=== PATIENT | female | born 1965 | race American Indian/Alaskan Native ===

== ENCOUNTER 2016-07-22 16:32 | Emergency (ER) | payer MEDICARE ==
--- NOTE | 2016-07-23 12:16 | ED Elopement Review ---
ED Pt Elopement review - Call Back decision Pt Call Back Decision: No action required
== END 2016-07-22 20:15 | disposition left against medical advice (07) ==
LOC: ED 16:32
DX: M62.838 Other muscle spasm (principal); Z53.21 Procedure and treatment not carried out due to patient leaving prior to being seen by health care provider

== ENCOUNTER 2016-09-03 17:27 | Emergency (ER) | payer MEDICARE | END 2016-09-03 17:40 | disposition left against medical advice (07) | LOC: ED 17:27 | DX: R03.0 Elevated blood-pressure reading, without diagnosis of hypertension (principal); Z53.21 Procedure and treatment not carried out due to patient leaving prior to being seen by health care provider ==

== ENCOUNTER 2017-08-03 12:02 | Emergency (ER) | payer MEDICARE ==
[2017-08-03 12:28] VITALS: BP 197/110
[2017-08-03] MEDS ORDERED: APRESOLINE PO ONE (12:35)
--- NOTE | 2017-08-03 12:58 | XRay Report ---
ROUTINE CHEST, TWO VIEWS: HISTORY: Shortness of breath. Compared to 04/19/16. Heart size appears borderline to mildly increased on today's exam. There is mild right perihilar infiltration. It is unclear if this represents pneumonia or unilateral pulmonary edema. The left lung is generally clear. No pleural effusion or pneumothorax. IMPRESSION: Borderline to mild cardiomegaly which appears new. Right perihilar infiltration which could represent pneumonia or unilateral pulmonary edema. Please correlate with the patient's clinical presentation.
[2017-08-03 14:13] LABS: Basophils % (Auto) 0.3 % (0.0-1.8); Eosinophils # (Auto) 0.1 K/mm3 (0.0-0.4); Eosinophils % (Auto) 0.9 % (0.0-4.3); Hematocrit 43.2 % (30.3-42.9); Hemoglobin 14.4 gm/dl (10.1-14.3); Lymphocytes % (Auto) 10.4 % (13.4-35.0); Mean Corpuscular HGB Conc 33 % (30-34); Mean Corpuscular Hemoglobin 30 pg (28-32); Mean Corpuscular Volume 90 fl (79-97); Monocytes # (Auto) 0.8 K/mm3 (0.0-0.8); Platelet Count 213 K/mm3 (140-440); Red Blood Count 4.82 M/mm3 (3.65-5.03); Red Cell Distribution Width 14.3 % (13.2-15.2)
[2017-08-03 14:36] LABS: BUN/Creatinine Ratio 12; Blood Urea Nitrogen 14 mg/dL (7-17); Calcium 8.9 mg/dL (8.4-10.2); Hemolysis Index 3
== END 2017-08-03 23:00 | disposition left against medical advice (07) ==
LOC: ED 12:02
DX: R06.02 Shortness of breath (principal); I10 Essential (primary) hypertension; Z53.21 Procedure and treatment not carried out due to patient leaving prior to being seen by health care provider
CPT/HCPCS: 36415; 71046; 80048; 83880; 84484; 85025; 93005; 93010

== ENCOUNTER 2017-12-21 16:06 | Emergency (ER) | payer MEDICARE ==
[2017-12-21] MEDS ORDERED: CATAPRES PO ONE (17:24)
--- NOTE | 2017-12-21 17:25 | Emergency Department Report ---
Blank Doc - Documentation Documentation: Patient is a 52-year-old [place] female from out of her blood pressure medicines. Patient saw her primary care physician today but her blood pressure was over 220 and was sent to the emergency department. Patient denies any chest pain or shortness of breath at this time. Patient also denies any focal neurological deficits. The patient will be sent to the fast-track area. Patient was given 0.2 Catapres and reassess her blood pressure.
[2017-12-21 19:49] VITALS: BP 192/103
== END 2017-12-21 20:09 | disposition left against medical advice (07) ==
LOC: ED 16:06
DX: I10 Essential (primary) hypertension (principal); Z53.21 Procedure and treatment not carried out due to patient leaving prior to being seen by health care provider
CPT/HCPCS: 99282

== ENCOUNTER 2018-02-19 13:20 | Emergency (ER) | payer MEDICARE ==
[2018-02-19] MEDS ORDERED: CATAPRES PO ONE (14:32)
--- NOTE | 2018-02-19 14:36 | Emergency Department Report ---
ED General Adult HPI - General Chief complaint: Medical Clearance Stated complaint: BLOOD PRESSURE HIGH Time Seen by Provider: 02/19/18 14:24 Source: patient Mode of arrival: Ambulatory Limitations: No Limitations - History of Present Illness Initial comments: Patient is 53 years old female history of hypertension. Noncompliant with her medication. Patient stated that she doesn't remember the last time she took any blood pressure medicine. Patient requesting refill for her medication. Her blood pressure in the ER is 220/116. Patient denied any headache, chest pain, shortness of breath, weakness numbness or tingling sensation. - Related Data Home Medications Medication Instructions Recorded Confirmed Last Taken Sertraline [Zoloft] 50 mg PO QDAY 12/04/14 08/14/15 12/03/14 Losartan/Hydrochlorothiazide 1 each PO QDAY 08/14/15 08/14/15 Unknown [Hyzaar 100-12.5 TAB] Previous Rx's Medication Instructions Recorded Last Taken Type Linaclotide [Linzess] 1 tab PO DAILY #30 capsule 12/04/14 Unknown Rx hydrALAZINE [Apresoline TAB] 50 mg PO Q8HR #90 tablet 05/15/15 Unknown Rx Metoprolol [Lopressor TAB] 50 mg PO BID@0800,2000 #60 tablet 10/22/15 Unknown Rx Ibuprofen 800 mg PO TID PRN #20 tablet 02/19/18 Unknown Rx Lisinopril 20 mg PO DAILY #30 tablet 02/19/18 Unknown Rx Metoprolol [Lopressor TAB] 50 mg PO BID #60 tablet 02/19/18 Unknown Rx amLODIPine [Norvasc] 10 mg PO DAILY #30 tab 02/19/18 Unknown Rx Allergies Allergy/AdvReac Type Severity Reaction Status Date / Time Penicillins Allergy Nausea Verified 04/29/16 12:12 ED Review of Systems ROS: Stated complaint: BLOOD PRESSURE HIGH Other details as noted in HPI Comment: All other systems reviewed and negative Respiratory: denies: cough Cardiovascular: denies: chest pain Gastrointestinal: denies: abdominal pain, nausea ED Past Medical Hx - Past Medical History Hx Hypertension: Yes Hx CVA: No Hx Heart Attack/AMI: No Hx Congestive Heart Failure: Yes Hx Diabetes: No Hx Deep Vein Thrombosis: No Hx Pulmonary Embolism: No Hx GERD: Yes Hx Liver Disease: No Hx Renal Disease: No Hx Sickle Cell Disease: No Hx Arthritis: No Hx Headaches / Migraines: No Hx Seizures: No Hx Kidney Stones: No Hx Psychiatric Treatment: Yes (Anxiety) Hx Asthma: No Hx COPD: No Hx Tuberculosis: No Hx Dementia: No Hx HIV: No Additional medical history: "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 X 4. TUBAL LIGATION. "TUMOR REMOVED FROM STOMACH" - Social History Smoking Status: Never Smoker Substance Use Type: None - Medications Home Medications: Home Medications Medication Instructions Recorded Confirmed Last Taken Type Linaclotide [Linzess] 1 tab PO DAILY #30 capsule 12/04/14 08/14/15 Unknown Rx Sertraline [Zoloft] 50 mg PO QDAY 12/04/14 08/14/15 12/03/14 History hydrALAZINE [Apresoline TAB] 50 mg PO Q8HR #90 tablet 05/15/15 08/14/15 Unknown Rx Losartan/Hydrochlorothiazide 1 each PO QDAY 08/14/15 08/14/15 Unknown History [Hyzaar 100-12.5 TAB] Metoprolol [Lopressor TAB] 50 mg PO BID@0800,2000 #60 tablet 10/22/15 Unknown Rx Ibuprofen 800 mg PO TID PRN #20 tablet 02/19/18 Unknown Rx Lisinopril 20 mg PO DAILY #30 tablet 02/19/18 Unknown Rx Metoprolol [Lopressor TAB] 50 mg PO BID #60 tablet 02/19/18 Unknown Rx amLODIPine [Norvasc] 10 mg PO DAILY #30 tab 02/19/18 Unknown Rx ED Physical Exam - General Limitations: No Limitations General appearance: alert, in no apparent distress - Head Head exam: Present: atraumatic, normocephalic, normal inspection - ENT ENT exam: Present: normal exam, normal orophraynx, mucous membranes moist - Neck Neck exam: Present: normal inspection, full ROM. Absent: tenderness, meningismus, lymphadenopathy, thyromegaly - Respiratory Respiratory exam: Present: normal lung sounds bilaterally. Absent: respiratory distress, wheezes, rales, rhonchi, stridor, chest wall tenderness - Cardiovascular Cardiovascular Exam: Present: regular rate, normal rhythm, normal heart sounds - GI/Abdominal GI/Abdominal exam: Present: soft, normal bowel sounds. Absent: distended, tenderness, guarding, rebound, rigid - Back Exam Back exam: Present: normal inspection, full ROM. Absent: CVA tenderness (R), CVA tenderness (L), muscle spasm, paraspinal tenderness, vertebral tenderness, rash noted - Neurological Exam Neurological exam: Present: alert, oriented X3, CN II-XII intact, normal gait, reflexes normal - Skin Skin exam: Present: warm, intact, normal color ED Course Vital Signs 02/19/18 02/19/18 02/19/18 13:44 14:45 14:46 Temperature 98.6 F Pulse Rate 82 92 H 92 H Respiratory 18 18 Rate Blood Pressure 220/116 220/121 Blood Pressure 220/121 [Left] O2 Sat by Pulse 98 Oximetry 02/19/18 02/19/18 16:54 17:05 Temperature Pulse Rate 61 61 Respiratory 18 18 Rate Blood Pressure Blood Pressure 181/113 181/113 [Left] O2 Sat by Pulse Oximetry ED Medical Decision Making - Lab Data Result diagrams: 02/19/18 14:39 02/19/18 14:39 Critical care attestation.: If time is entered above; I have spent that time in minutes in the direct care of this critically ill patient, excluding procedure time. ED Disposition Clinical Impression: Uncontrolled hypertension Disposition: DC-01 TO HOME OR SELFCARE Is pt being admited?: No Condition: Stable Instructions: Hypertension (ED) Prescriptions: amLODIPine [Norvasc] 10 mg PO DAILY #30 tab Ibuprofen 800 mg PO TID PRN #20 tablet PRN Reason: Pain , Severe (7-10) Lisinopril 20 mg PO DAILY #30 tablet Metoprolol [Lopressor TAB] 50 mg PO BID #60 tablet Referrals: PRIMARY CARE, [Primary Care Provider] - 3-5 Days
[2018-02-19 14:49] LABS: Basophils % (Auto) 0.7 % (0.0-1.8); Eosinophils # (Auto) 0.1 K/mm3 (0.0-0.4); Eosinophils % (Auto) 1.9 % (0.0-4.3); Hemoglobin 12.8 gm/dl (10.1-14.3); Lymphocytes # (Auto) 1.2 K/mm3 (1.2-5.4); Lymphocytes % (Auto) 24.1 % (13.4-35.0); Mean Corpuscular HGB Conc 35 % (30-34); Mean Corpuscular Hemoglobin 30 pg (28-32); Mean Corpuscular Volume 87 fl (79-97); Monocytes # (Auto) 0.4 K/mm3 (0.0-0.8); Monocytes % (Auto) 8.9 % (0.0-7.3); Platelet Count 232 K/mm3 (140-440); Red Blood Count 4.23 M/mm3 (3.65-5.03); Red Cell Distribution Width 15.3 % (13.2-15.2)
[2018-02-19 15:32] LABS: Calcium 8.9 mg/dL (8.4-10.2)
[2018-02-19 16:55] VITALS: BP 181/113
== END 2018-02-19 17:05 | disposition home or self-care (01) ==
LOC: ED 13:20
DX: I11.0 Hypertensive heart disease with heart failure (principal); I50.9 Heart failure, unspecified; K21.9 Gastro-esophageal reflux disease without esophagitis; Z90.710 Acquired absence of both cervix and uterus; Z88.0 Allergy status to penicillin
CPT/HCPCS: 36415; 80048; 85025; 99283

== ENCOUNTER 2018-03-15 16:43 | Emergency (ER) | payer MEDICARE ==
[2018-03-15 16:53] VITALS: BP 190/136
== END 2018-03-15 20:15 | disposition left against medical advice (07) ==
LOC: ED 16:43
DX: R03.0 Elevated blood-pressure reading, without diagnosis of hypertension (principal); Z53.21 Procedure and treatment not carried out due to patient leaving prior to being seen by health care provider